=== PATIENT | male | born 1995 | race Caucasian/White ===

== ENCOUNTER 2017-06-27 13:49 | Emergency (ER) | payer MEDICARE | END 2017-06-27 14:53 | disposition home or self-care (01) | DX: S60.222A Contusion of left hand, initial encounter (principal); F17.210 Nicotine dependence, cigarettes, uncomplicated; Z88.0 Allergy status to penicillin; Z88.1 Allergy status to other antibiotic agents; Z91.010 Allergy to peanuts; W18.30XA Fall on same level, unspecified, initial encounter; Y93.01 Activity, walking, marching and hiking ==